=== PATIENT | male | born 1950 | race Caucasian/White ===

== ENCOUNTER → 2016-06-29 | Outpatient (CLI) | payer OTHER ==
--- NOTE | 2016-06-29 18:33 | DX ---
Right Ankle, 3 Views, at 3:54 p.m. Clinical History: 66-year-old male with right lateral ankle pain and swelling for 2 days after a skii ng injury. ICD 10 Diagnostic Codes: M25.571, and S99.911A. Comparison Study: None. Findings: There is some soft tissue swelling about the ankle. There is no acute fracture or dislocati on. The mortise is maintained, and the subtalar joint is normal. The talar dome is well-contoured. Th ere is a small plantar calcaneal enthesophyte. Vascular calcifications are present, which may reflect underlying diabetes mellitus, hypercalcemia, and/or hypercholesterolemia. Impression: Mild lateral soft tissue swelling, with no acute osseous abnormality.
== END ==
LOC: FIMAGING 15:50
PROVIDERS: ATTEND Family Medicine
DX: S99.911A Unspecified injury of right ankle, initial encounter (principal)